=== PATIENT | male | born 1975 | race Two or more races ===

== ENCOUNTER 2025-01-25 18:08 | Emergency (ER) | payer OTHER ==
[~2025-01-25] VITALS: Ht 180.3 cm; Wt 102.1 kg
[2025-01-25] MEDS ORDERED: NIFEDIPINE 10 MG CAPSULE PO ONE ×2 (19:30→19:31)
[2025-01-25] MEDS ORDERED: BENZONATATE 200 MG CAPSULE PO ONE (19:30)
[2025-01-25 19:58] LABS: HEMATOCRIT 46.1 % (39.0-48.0); HEMOGLOBIN 15.3 g/dL (13-16.00); MEAN CELL VOLUME 82.9 fL (80.0-100.00); MEAN CORPUSCULAR HEMOGLOBIN 27.5 pg (27.00-32.0); MEAN CORPUSCULAR HGB CONC 33.2 g/dl (32.0-36.0); PLATELET COUNT 252 K/uL (150-450); RED BLOOD COUNT 5.55 M/uL (4.00-6.00); RED CELL DISTRIBUTION WIDTH 15.1 % (11.5-14.5)
[2025-01-25 20:19] LABS: ALBUMIN 4.2 gm/dL (3.4-5.0); BILIRUBIN TOTAL 1.27 mg/dL (0.3-1.2); CALCIUM 9.4 mg/dL (8.5-10.1); CREATININE SERUM 1.58 mg/dL (0.70-1.30); GFR 47.04; GLOBULINA 4.4 G/DL (2.4-3.5); POTASSIUM 3.75 mEq/L (3.5-5.1); TOTAL PROTEIN 8.6 gm/dL (6.4-8.2)
[2025-01-25] MEDS ORDERED: AZITHROMYCIN500 MG PO (20:48)
[2025-01-25] MEDS ORDERED: PEPCID AC20 MG PO (20:48)
[2025-01-25] MEDS ORDERED: COZAAR25 MG PO (20:48)
[2025-01-25] MEDS ORDERED: BENZONATATE200 M1 PO (20:48)
== END 2025-01-25 21:04 | disposition home or self-care (01) ==
LOC: ER 18:11
PROVIDERS: General Practice
DX: R05.9 Cough, unspecified (principal); I10 Essential (primary) hypertension; Z20.822 Contact with and (suspected) exposure to COVID-19